=== PATIENT | female | born 1995 | race American Indian/Alaskan Native ===

== ENCOUNTER 2017-09-06 20:08 | Emergency (ER) | payer MEDICAID ==
--- NOTE | 2017-09-06 21:01 | Emergency Department Report ---
ED Female HPI - General Chief complaint: Abdominal Pain Stated complaint: ABDOMINAL PAIN Time Seen by Provider: 09/06/17 21:00 Source: patient, RN notes reviewed Mode of arrival: Stretcher Limitations: No Limitations - History of Present Illness Initial comments: This is a 22-year-old female. The patient is previously unknown to this provider. Her structural engineering project manager is Dr. pineda with [facility]; . The patient is 3, para 1. Doesn't know her last menstruation. Presents to the ER with bilateral lower quadrant abdominal pain and vaginal bleeding. Symptoms started within the past 2 days. Abdominal pain is constant. It is sharp and achy. It does not radiate anywhere. It increases with palpation and decreases with rest. The patient denies headache, neck pain , chest pain, shortness of breath, irritative urinary symptoms, and denies constipation. She is bleeding, and indicates that she is passing multiple clots. MD Complaint: vaginal bleeding, pelvic pain -: Gradual Location: suprapubic, LLQ, RLQ Severity: moderate Quality: cramping Consistency: constant Improves with: other (per hpi) Worsens with: other (per hpi) Are you Now?: Yes Associated Symptoms: vaginal bleeding, abdominal pain. denies: dysuria - Related Data Sexually active: Yes Home Medications Medication Instructions Recorded Confirmed Last Taken No Known Home Medications [No 09/06/17 09/06/17 Unknown Reported Home Medications] Allergies Allergy/AdvReac Type Severity Reaction Status Date / Time josiane Allergy Unknown Uncoded 09/06/17 20:21 ED Review of Systems ROS: Stated complaint: ABDOMINAL PAIN Other details as noted in HPI Constitutional: denies: fever Eyes: denies: eye discharge ENT: denies: epistaxis Respiratory: denies: cough Cardiovascular: denies: chest pain Genitourinary: abnormal menses. denies: dysuria Skin: denies: lesions Neurological: weakness Psychiatric: anxiety ED Past Medical Hx - Past Medical History Previous Medical History?: No - Surgical History Past Surgical History?: No - Social History Smoking Status: Never Smoker Substance Use Type: Marijuana - Medications Home Medications: Home Medications Medication Instructions Recorded Confirmed Last Taken Type No Known Home Medications [No 09/06/17 09/06/17 Unknown History Reported Home Medications] ED Physical Exam - General Limitations: No Limitations General appearance: alert, in no apparent distress - Head Head exam: Present: atraumatic, normocephalic - Eye Eye exam: Present: normal appearance, EOMI. Absent: nystagmus - ENT ENT exam: Present: normal exam, normal orophraynx, mucous membranes moist, normal external ear exam - Neck Neck exam: Present: normal inspection, full ROM - Respiratory Respiratory exam: Present: normal lung sounds bilaterally. Absent: respiratory distress, chest wall tenderness - Cardiovascular Cardiovascular Exam: Present: regular rate, normal rhythm, normal heart sounds. Absent: systolic murmur, diastolic murmur, rubs, gallop - GI/Abdominal GI/Abdominal exam: Present: soft, tenderness, normal bowel sounds, other (there is suprapubic, right lower quadrant, left lower quadrant tenderness). Absent: distended, guarding, rebound, rigid, pulsatile mass - External exam: Present: normal external exam Speculum exam: Present: vaginal bleeding Bi-manual exam: Present: normal bi-manual exam, adnexal tenderness, other ( escorted by nurse PINA PASCAL). Absent: cervical motion tendernes - Extremities Exam Extremities exam: Present: normal inspection, full ROM, normal capillary refill. Absent: calf tenderness - Back Exam Back exam: Present: normal inspection, full ROM. Absent: CVA tenderness (R), CVA tenderness (L), paraspinal tenderness, vertebral tenderness - Neurological Exam Neurological exam: Present: alert, oriented X3, normal gait, other (Extraocular movements intact. Tongue midline. No facial droop. Facial sensation intact to light touch in the V1, V2, V3 distribution bilaterally. 5 and 5 strength in 4 extremities.. Sensation is intact to light touch in 4 extremities.). Absent : motor sensory deficit - Psychiatric Psychiatric exam: Present: normal affect, normal mood - Skin Skin exam: Present: warm, dry, intact, normal color. Absent: rash ED Course Vital Signs 09/06/17 09/06/17 09/06/17 20:16 20:21 20:30 Temperature 97.6 F Pulse Rate 90 Respiratory 16 Rate Blood Pressure 104/70 104/70 114/73 Blood Pressure 104/70 [Right] O2 Sat by Pulse 99 Oximetry 09/06/17 09/06/17 09/06/17 20:45 21:00 21:15 Temperature Pulse Rate Respiratory Rate Blood Pressure 101/48 110/63 108/67 Blood Pressure [Right] O2 Sat by Pulse 100 97 Oximetry 09/06/17 09/06/17 09/06/17 21:25 21:29 21:55 Temperature Pulse Rate Respiratory 16 16 16 Rate Blood Pressure Blood Pressure [Right] O2 Sat by Pulse 99 Oximetry 09/06/17 09/06/17 09/06/17 22:07 22:12 22:15 Temperature Pulse Rate Respiratory Rate Blood Pressure 110/63 108/67 110/63 Blood Pressure [Right] O2 Sat by Pulse 99 99 99 Oximetry 09/06/17 09/06/17 09/06/17 22:30 22:45 22:49 Temperature Pulse Rate Respiratory Rate Blood Pressure 106/57 97/52 97/52 Blood Pressure [Right] O2 Sat by Pulse 100 99 98 Oximetry 09/06/17 09/06/17 09/06/17 23:00 23:15 23:30 Temperature Pulse Rate Respiratory Rate Blood Pressure 104/51 112/55 106/51 Blood Pressure [Right] O2 Sat by Pulse 98 100 98 Oximetry 09/06/17 09/07/17 09/07/17 23:45 00:00 00:15 Temperature Pulse Rate Respiratory Rate Blood Pressure 122/56 110/36 120/55 Blood Pressure [Right] O2 Sat by Pulse 99 98 99 Oximetry 09/07/17 09/07/17 00:30 00:45 Temperature Pulse Rate Respiratory Rate Blood Pressure 109/49 114/55 Blood Pressure [Right] O2 Sat by Pulse 99 99 Oximetry - Reevaluation(s) Reevaluation #1: 09/06/17 21:45 Differential diagnosis, including but not limited to: Ectopic , miscarriage, Assessment and plan: 22-year-old female with vaginal bleeding, cramping, lower abdominal pain and tendernes, concerning for miscarriage. Pelvic ultrasound is pending. Urinalysis is pending. Patient will be reassessed. Reevaluation #2: 09/07/17 01:06 Belly is soft on repeat examination. Transvaginal ultrasound demonstrates a closed cervix, endometrial complex is poorly defined, endometrium is thickened, no obvious lesions noted in the adnexa A. Patient's blood pressure has remained stable. On her gynecologic exam she had obvious blood coming from her cervix, and left- sided adnexal discomfort. Her clinical presentation is most likely consistent with a miscarriage. The patient is instructed to rest and avoid heavy lifting and avoid strenuous physical activity, and avoid sex. She is instructed to return in 2 days for a repeat physical exam and quantitative hCG. Return precautions are reviewed. Urinalysis is reviewed and appreciated, the patient does not have any urinary symptoms at this time. Reevaluation #3: 09/07/17 01:09 Patient is Rh+, no indication for RhoGAM ED Medical Decision Making - Lab Data Result diagrams: 09/06/17 20:47 09/06/17 20:47 Vital Signs 09/06/17 09/06/17 09/06/17 20:16 20:21 20:30 Temperature 97.6 F Pulse Rate 90 Respiratory 16 Rate Blood Pressure 104/70 104/70 114/73 Blood Pressure 104/70 [Right] O2 Sat by Pulse 99 Oximetry 09/06/17 09/06/17 09/06/17 20:45 21:00 21:15 Temperature Pulse Rate Respiratory Rate Blood Pressure 101/48 110/63 108/67 Blood Pressure [Right] O2 Sat by Pulse 100 97 Oximetry 09/06/17 09/06/17 09/06/17 21:25 21:29 21:55 Temperature Pulse Rate Respiratory 16 16 16 Rate Blood Pressure Blood Pressure [Right] O2 Sat by Pulse 99 Oximetry 09/06/17 09/06/17 09/06/17 22:07 22:12 22:15 Temperature Pulse Rate Respiratory Rate Blood Pressure 110/63 108/67 110/63 Blood Pressure [Right] O2 Sat by Pulse 99 99 99 Oximetry 09/06/17 09/06/17 09/06/17 22:30 22:45 22:49 Temperature Pulse Rate Respiratory Rate Blood Pressure 106/57 97/52 97/52 Blood Pressure [Right] O2 Sat by Pulse 100 99 98 Oximetry 09/06/17 09/06/17 09/06/17 23:00 23:15 23:30 Temperature Pulse Rate Respiratory Rate Blood Pressure 104/51 112/55 106/51 Blood Pressure [Right] O2 Sat by Pulse 98 100 98 Oximetry 09/06/17 09/07/17 09/07/17 23:45 00:00 00:15 Temperature Pulse Rate Respiratory Rate Blood Pressure 122/56 110/36 120/55 Blood Pressure [Right] O2 Sat by Pulse 99 98 99 Oximetry 09/07/17 09/07/17 00:30 00:45 Temperature Pulse Rate Respiratory Rate Blood Pressure 109/49 114/55 Blood Pressure [Right] O2 Sat by Pulse 99 99 Oximetry Labs 09/06/17 09/06/17 09/06/17 20:47 20:47 20:47 WBC 8.0 RBC 3.86 Hgb 11.1 Hct 33.3 MCV 86 MCH 29 MCHC 33 RDW 14.4 Plt Count 243 Lymph % (Auto) 19.6 [place] % (Auto) 10.4 H Eos % (Auto) 1.9 Baso % (Auto) 0.8 Lymph # 1.6 [place] # 0.8 Eos # 0.2 Baso # 0.1 Seg Neutrophils % 67.3 Seg Neutrophils # 5.4 Sodium 137 Potassium 4.0 Chloride 101.5 Carbon Dioxide 25 Anion Gap 15 BUN 9 Creatinine 0.5 L Estimated GFR > 60 BUN/Creatinine Ratio 18 Glucose 99 Calcium 8.6 HCG, Qual Positive HCG, Quant Urine Color Urine Turbidity Urine pH Ur Specific [place] Urine Protein Urine Glucose (UA) Urine Ketones Urine Blood Urine Nitrite Ur Reducing Substances Urine Bilirubin Urine Ictotest Urine Urobilinogen Ur Leukocyte Esterase Urine WBC (Auto) Urine RBC (Auto) U Epithel Cells (Auto) Urine Bacteria (Auto) Urine Mucus Blood Type Antibody Screen 09/06/17 09/06/17 09/06/17 20:47 21:06 22:44 WBC RBC Hgb Hct MCV MCH MCHC RDW Plt Count Lymph % (Auto) [place] % (Auto) Eos % (Auto) Baso % (Auto) Lymph # [place] # Eos # Baso # Seg Neutrophils % Seg Neutrophils # Sodium Potassium Chloride Carbon Dioxide Anion Gap BUN Creatinine Estimated GFR BUN/Creatinine Ratio Glucose Calcium HCG, Qual HCG, Quant 5815 H Urine Color Zaina Urine Turbidity Clear Urine pH 6.0 Ur Specific [place] 1.029 Urine Protein 100 mg/dl Urine Glucose (UA) Neg Urine Ketones Neg Urine Blood Lg Urine Nitrite Neg Ur Reducing Substances Not Reportable Urine Bilirubin Neg Urine Ictotest Not Reportable Urine Urobilinogen 2.0 Ur Leukocyte Esterase Tr Urine WBC (Auto) 23.0 H Urine RBC (Auto) > 182.0 U Epithel Cells (Auto) 3.0 Urine Bacteria (Auto) 1+ Urine Mucus 3+ Blood Type A POSITIVE Antibody Screen Negative - Radiology Data Radiology results: report reviewed Critical care attestation.: If time is entered above; I have spent that time in minutes in the direct care of this critically ill patient, excluding procedure time. ED Disposition Clinical Impression: Miscarriage Disposition: [id number] TO HOME OR SELFCARE Is pt being admited?: No Does the pt Need Aspirin: No Condition: Stable Instructions: Spontaneous Miscarriage (ED) Additional Instructions: Rest and avoid heavy lifting. Avoid strenuous physical activity. Did not have sex until cleared by your structural engineering project manager. Follow up in 2 days/48 hours for a repeat physical exam and quantitative hCG/ blood test. Return to the ER right away with new pain, worsened pain, migration of pain, fevers, chills, lethargy, irritability, projectile vomiting, change in mental status, weakness, lightheadedness, loss of consciousness, bleeding more than 2 pads soaked per [address] Couch Address: [address] [place] [address] Hours: Open today 9AM5PM Suggest an edit Follow-up with your private structural engineering project manager, as recommended, or return to the ER, or follow up with any of the listed gynecology specialist. Referrals: PRIMARY CARE, [Primary Care Provider] - 3-5 Days [facility] [Provider Group] - 3-5 Days [facility] [Provider Group] - 3-5 Days [facility] [Provider Group] - 3-5 Days
[2017-09-06] MEDS ORDERED: NACL 0.9% 500 ML 500 ML IV ONE (21:06)
[2017-09-06] MEDS ORDERED: SUBLIMAZE IV ONE (21:06)
[2017-09-06 21:10] LABS: Anion Gap 15 mmol/L; BUN/Creatinine Ratio 18; Blood Urea Nitrogen 9 mg/dL (7-17); Calcium 8.6 mg/dL (8.4-10.2); Carbon Dioxide 25 mmol/L (22-30); Chloride 101.5 mmol/L (98-107); Glucose 99 mg/dL (65-100); Sodium 137 mmol/L (137-145)
[2017-09-06 21:14] LABS: Basophils % (Auto) 0.8 % (0.0-1.8); Eosinophils % (Auto) 1.9 % (0.0-4.3); Hematocrit 33.3 % (30.3-42.9); Hemoglobin 11.1 gm/dl (10.1-14.3); Mean Corpuscular HGB Conc 33 % (30-34); Mean Corpuscular Hemoglobin 29 pg (28-32); Mean Corpuscular Volume 86 fl (79-97); Platelet Count 243 K/mm3 (140-440); Red Blood Count 3.86 M/mm3 (3.65-5.03); Red Cell Distribution Width 14.4 % (13.2-15.2)
--- NOTE | 2017-09-06 23:43 | Ultrasound Report ---
FINAL REPORT PROCEDURE: Transabdominal obstetrical ultrasound. TECHNIQUE: Real-time transabdominal sonography of the uterus, placenta, amniotic fluid, adnexa, and fetus was performed with image documentation. Measurements were obtained to determine age/size. M-mode Doppler was used to document heartbeat. CPT 79545 HISTORY: , vaginal bleeding. COMPARISON: No prior studies are available for comparison. FINDINGS: Image quality is limited because the bladder was not fully distended. The uterus measures 10.0 centimeters x 5.6 centimeters x 6.2 centimeters. The myometrium appears fairly uniform. The endometrial echo complex measures approximately 9.5 millimeters within the fundus. There is no evidence of an intrauterine gestational sac. The right ovary appears normal in size. There is a small cyst in the right ovary measuring 2.5 centimeters in maximum dimension. The left ovary appears normal in size. IMPRESSION: No evidence of an intrauterine . Correlation with quantitative beta HCG value recommended.
--- NOTE | 2017-09-06 23:48 | Ultrasound Report ---
FINAL REPORT PROCEDURE: Transvaginal obstetrical ultrasound. TECHNIQUE: Real-time transvaginal sonography of the uterus, placenta, amniotic fluid, adnexa, and fetus was performed with image documentation. Measurements were obtained to determine age/size. M-mode Doppler was used to document heartbeat. CPT 44739 HISTORY: , vaginal bleeding. COMPARISON: No prior studies are available for comparison. FINDINGS: The cervix is closed. The uterus measures 10.1 centimeters x 5.8 centimeters x 7.5 centimeters. The myometrium is somewhat inhomogeneous. There is no evidence of an intrauterine gestational sac. The endometrial echo complex is poorly defined. The endometrium may be thickened up to 2.9 centimeters. There may be thickened endometrium in the lower uterine segment. Follow-up imaging and correlation with a quantitative beta HCG value is suggested. There is a small cyst in the right ovary. The left ovary appears normal. IMPRESSION: Abnormal appearing endometrium. No definite intrauterine .
[2017-09-07 00:04] LABS: Bacteria,Urine 1+ /HPF (Negative); Mucus,Urine 3+ /HPF
[2017-09-07 00:24] LABS: RBC,Urine > 182.0 /HPF (0.0-6.0)
[2017-09-07 00:32] LABS: Bilirubin,Urine NEG (Negative); Blood,Urine LG (Negative); Ketones,Urine NEG (Negative); Leukocyte Esterase,Urine TR (Negative); Nitrite,Urine NEG (Negative)
[2017-09-07 01:02] VITALS: BP 114/55
== END 2017-09-07 01:40 | disposition home or self-care (01) ==
LOC: ED 20:08
DX: O03.9 Complete or unspecified spontaneous abortion without complication (principal); Z3A.00 Weeks of gestation of pregnancy not specified
CPT/HCPCS: 36415; 76801; 76817; 80048; 81001; 84702; 84703; 85025; 86850; 86900; 86901; 96374; 99285; J3010; J7040